=== PATIENT | female | born 1960 | race Two or more races ===

== ENCOUNTER 2025-02-06 22:05 | Emergency (ER) | payer OTHER ==
[~2025-02-06] VITALS: Ht 167.6 cm; Wt 72.6 kg
== END 2025-02-07 00:20 | disposition home or self-care (01) ==
LOC: ER 22:06
DX: S01.01XA Laceration without foreign body of scalp, initial encounter (principal); W18.30XA Fall on same level, unspecified, initial encounter; Y93.9 Activity, unspecified; Y92.9 Unspecified place or not applicable; Y99.9 Unspecified external cause status